=== PATIENT | female | born 1960 | race Caucasian/White ===

== ENCOUNTER → 2017-12-26 | Day surgery (SDC) | payer OTHER ==
[~2017-12-26] VITALS: Ht 177.8 cm; Wt 106.6 kg
[~2017-12-26] MED LIST: *morphine SULFATE 8 MG/ML PERIprocedure ONLY ONE; ACETAMINOPHEN 1000 MG/100 ML 100 ML IV ONE; APREPITANT 40 MG CAP ONE; CHLORHEXIDINE GLUCONATE 2 % 1 PACK (2 CLOTHS) TOPICAL PRN; CLAR10CA3 PO; DO NOT ADM ANY ANTICOAGULANT DRUGS PRN; FAMOTIDINE 20 MG/2 ML VIAL ONE; HYDR-3366 PO; HYDROCORTISONE SOD SUCCINATE 100 MG VIAL ONE; KETOROLAC TROMETHAMINE 30 MG/ML (IVP) VIAL IV PUSH ONE; LACTATED RINGER'S 1000 ML INJ 1,000 ML IV ONE; LACTATED RINGER'S 1000 ML IV PRN; LACTCAP8 PO; LEVO.1 PO; LIDOCAINE HCL 1% PF 5 ML SYRINGE OTHER ONE; METOPROLOL TARTRATE 25 MG TAB PO PRN; MIDAZOLAM HCL 2 MG/2 ML VIAL ONE; MORPHINE SULFATE 4 MG/ML INJ IV PUSH PRN; ONDANSETRON HCL 4 MG/2 ML VIAL IV ONE; ONDANSETRON HCL 4 MG/2 ML VIAL IV PUSH PRN; PHENYLEPH/NS 1000 MCG/10 ML SYR IV ONE; POVIDONE IODINE 5% (ANTISEPSIS KIT) 4 APPLICATIONS EACH NARE PRN; PRED1 PO; PRED5 PO; PROBCAP11; PROPOFOL 200 MG/20 ML AMP IV ONE; ROCURONIUM INJ 50 MG/5 ML SYRINGE IV PUSH ONE; SODIUM CHLORID 0.9% 500 ML IV PRN; SODIUM CHLORIDE 0.9% FLUSH 10 ML FLUSH IV FLUSH PRN; SODIUM CHLORIDE 0.9% FLUSH 10 ML FLUSH IV FLUSH SCH; SUGAMMADEX SODIUM 200 MG/2 ML VIAL IV PUSH ONE; VANCOMYCIN 1,500 MG/NS 500 ML IV ONE; VITA100020 IJ; [UNRECOGNIZED DRUG - OTHER]; [UNRECOGNIZED DRUG - OTHER] PO; ePHEDrine/NS 25 MG/5 ML SYRINGE IV ONE
--- NOTE | 2017-12-26 09:24 | PD.OP ---
cc: Lino Cameron MD; Zaid Monteiro DO Operative Report Date of Surgery: Dec 26, 2017 Preoperative Diagnosis: (1) Left inguinal hernia Postoperative Diagnosis: (1) Left inguinal hernia Procedure: Left inguinal hernia repair with mesh Anesthesia: GEN Surgeon: Lino Cameron [employer] Controller(s): Melly CHAHAL Operation and Findings: EBL: 5cc Operative findings: Large indirect inguinal hernia and attenuated surrounding fascia Procedure in detail: The patient was taken to the operating room and placed in the supine position. General anesthesia was induced. The lower abdomen and groin was prepped and draped in usual sterile fashion. Appropriate preoperative antibiotics were administered. Lidocaine with epinephrine was injected in the skin and subcutaneous tissue in the left inguinal area and an inguinal incision was made. Dissection was carried out through subcutaneous tissue with electrocautery. Davin's fascia was divided with electrocautery and the external oblique was encountered. A sherie along the direction of fibers was created with a scalpel an the incision extended with metzenbaum scissors taking care to avoid underlyiing nerves. A large indirect defect was identified with fatty tissue protruding through the defect. The surrounding external oblique fascia was somewhat attenuated. The herniated contents were from surrounding tissues and reduced back into the abdominal cavity. 0 Vicryl sutures were used to reapproximate the internal oblique and external oblique fascia in order to facilitate mesh placement. A 15 x 15 cm piece of lightweight polypropylene mesh was then cut to size. This was secured using simple interrupted 0 Ethibond suture to the pubic tubercle and along the inguinal ligament well past the area of the defect.. Simple interrupted 0 Ethibond sutures were used to fasten the superior aspect of the mesh medially and superiorly along the conjoined tendon and internal oblique fibers taking care to avoid nearby nerves. The lateral flaps of mesh were tucked under the external oblique fascia. There was appropriate hemostasis in the operative field. External oblique fascia was closed with with running 3-0 Vicryl suture. Davin's was closed with interrupted 3-0 Vicryl sutures. Another layer of running 3-0 Vicryl was used to bring the skin and closer apposition. Skin closed with running subcuticular 4-0 Monocryl as well as Dermabond. The patient tolerated procedure well and was taken to postop in stable condition. Lino Cameron MD Dec 26, 2017 09:24
[2017-12-26 10:55] VITALS: BP 140/71; PULSE 71; RESP 20; TEMP 97.9; O2SAT 94
== END | disposition home or self-care (01) ==
LOC: HSDC 05:58
PROVIDERS: ATTEND Surgery
DX: K40.90 Unilateral inguinal hernia, without obstruction or gangrene, not specified as recurrent (principal); I10 Essential (primary) hypertension
CPT/HCPCS: 00830; 49505; C1781; J0131; J1720; J2250; J2270; J3010; J7120; J8501; J1885; J2370; J2405